=== PATIENT | male | born 1995 | race Caucasian/White ===

== ENCOUNTER 2016-05-22 12:27 | Emergency (ER) | payer OTHER ==
[2016-05-22] MEDS ORDERED: NS 0.9% 1000 ML* 1,000 ML IV ONE ×2 (13:23→14:17)
[2016-05-22] MEDS ORDERED: Ondansetron ODT TAB* 4 MG PO ONE (13:23)
[2016-05-22] MEDS ORDERED: Dexamethasone IV* 4 MG/ML 1 ML (4 MG) IV SLOW PU ONE (13:23)
[2016-05-22] MEDS ORDERED: cefTRIAXone(*) 1 GM in NS 0.9% 50 ML* 50 ML IVPB ONE (13:23)
[2016-05-22] MEDS ORDERED: Ketorolac INJ* 30 MG/ML 1 ML VIAL IM ONE (13:53)
[2016-05-22] MEDS ORDERED: Clindamycin 300 MG IVPREMIX(* 300 MG/50 ML SDV IV SCH (15:00)
[2016-05-22 16:42] VITALS: BP 145/75
--- NOTE | 2016-05-22 19:30 | ED ---
Job Moody Rebecca, scribed for Donald Brunson MD on 05/22/16 at 1325 . Throat Pain/Nasal Congestion - HPI Summary HPI Summary: Pt is a 20 y/o M who presents to ED c/o throat pain and swelling. Sx began gradually 6 days ago and have been worsening and constant since onset. Pain is currently severe, ranked 9/10. Sx aggravated and alleviated by nothing, unchanged by Z-pack Abx. Denies any other sx. No allergies to penicillin. - History of Current Complaint Chief Complaint: EDThroatPain Time Seen by Provider: 05/22/16 13:19 Hx Obtained From: Patient Onset/Duration: Gradual Onset, Lasting Days - 6 days, Still Present Severity: Severe Associated Signs And Symptoms: Positive: Negative Cough: None - Allergies/Home Medications Allergies/Adverse Reactions: Allergies Allergy/AdvReac Type Severity Reaction Status Date / Time No Known Allergies Allergy Verified 05/22/16 12:32 PMH/Surg Hx/FS Hx/Imm Hx Previously Healthy: Yes Endocrine/Hematology History: Denies: Hx Diabetes Cardiovascular History: Denies: Hx Hypertension Infectious Disease History: No Infectious Disease History: Denies: Traveled Outside the [place] in Last 30 Days - Family History Known Family History: Negative: Cardiac Disease, Hypertension, Diabetes - Social History Alcohol Use: Occasionally Substance Use Type: Reports: None Hx Tobacco Use: No Smoking Status (MU): Never Smoked Tobacco Review of Systems Constitutional: Negative Eyes: Negative Positive: Sore Throat, Other - Throat swelling Cardiovascular: Negative Respiratory: Negative Gastrointestinal: Negative Genitourinary: Negative Musculoskeletal: Negative Skin: Negative Neurological: Negative Psychological: Normal All Other Systems Reviewed And Are Negative: Yes Physical Exam - Summary Physical Exam Summary: Vital signs: Reviewed Gen.: Patient is a well-developed and nourished male in no acute distress. Patient is lying comfortably on the stretcher. Head: Normacephalic and atraumatic Eyes: PERRLA, EOMI x2. Ears: Right and Left ear canal and TM WNL Nose and mouth: Positive retropharyngeal abscess Neck: Supple, no lymphadenopathy, no JVD Lungs: CTA B/L CVS: S1 & S2 present. No murmurs appreciated. ABDOMEN: Soft, non-tender. No signs of distention. No rebound no guarding, and no masses palpated. Bowel sounds are normal. EXTREMITIES: FROM in all major joints, no edema, no cyanosis or clubbing. NEURO: Alert and oriented x 3. No acute neurological deficits. Speech is normal and follows commands. SKIN: Dry and warm Triage Information Reviewed: Yes Vital Signs On Initial Exam: Initial Vitals Temp Pulse Resp BP Pulse Ox 98.6 F 95 16 158/80 100 05/22/16 12:30 05/22/16 12:30 05/22/16 12:30 05/22/16 12:30 05/22/16 12:30 Vital Signs Reviewed: Yes Diagnostics - Vital Signs Vital Signs Temp Pulse Resp BP Pulse Ox 05/22/16 12:30 98.6 F 95 16 158/80 100 - Laboratory Lab Results: Lab Results 05/22/16 Range/Units 15:35 Group A Strep Rapid Negative (Negative) Lab Statement: Any lab studies that have been ordered have been reviewed, and results considered in the medical decision making process. Re-Evaluation - Re-Evaluation First Eval Re-Evaluation Time: 15:05 Change: Improved Comment: Pt is feeling significantly better. EENT Course/Dx - Course Assessment/Plan: Pt is a 20 y/o M who presents to ED c/o throat pain and swelling. Sx began gradually 6 days ago and have been worsening and constant since onset. Pain is currently severe, ranked 9/10. Sx aggravated and alleviated by nothing, unchanged by Z-pack Abx. Denies any other sx. No allergies to penicillin. In the ED course he was given 2 liters of IV fluid, decadron, clindamycin and Toradol for the pain. Dr. Gupta (ENT) came and I &D the abscess. NO complication. After the procedure and medications he is feeling much improved. He will be discharged home with Clindamycin and Naproxen for pain. He has no other complaints. I discussed all the findings and test results with the patient. Patient was instructed to return to the emergency room immediately if any of the symptoms return or worsens. If he develops any difficulty swallowing, fever, increase in pain. Plan of care was discussed with the patient and understands and agrees. All questions were answered at patient satisfaction. There were no further complaints or concerns. P/E: Lungs: CTA B/L. Good air exchange. No wheezing or crackles heard. CVS: S1 and S2 present. No murmurs appreciated. Patient is alert and oriented x 3. Patient is hemodynamically stable. Patient will be discharged home with follow up PMD in the next 2-3 days - Differential Diagnoses Differential Diagnoses: Cellulitis, Epiglottitis, Foreign Body, URI/Bronchitis - Diagnoses Provider Diagnoses: Retropharyngeal abscess - Provider Notifications Discussed Care of Patient with: Dr. Gupta, ENT, who will evaluate pt in the ED. Time Discussed With Above Provider: 13:52 Discharge - Discharge Plan Condition: Stable Disposition: HOME Prescriptions: Clindamycin CAP* [Cleocin 150 MG CAP*] 150 mg PO QID #40 cap Naproxen TAB* [Naprosyn TAB*] 375 mg PO BID PRN #20 tab PRN Reason: Pain Patient Education Materials: Abscess (ED) Referrals: IRIS Martinez [Primary Care Provider] - 3 Days (Follow up with your primary health care provider in the next 3 days. ) The documentation as recorded by the Job boone Rebecca accurately reflects the service I personally performed and the decisions made by Boy rahman Walter, MD.
--- NOTE | 2016-05-22 20:31 | CONS ---
CONSULTATION NOTE: DATE OF CONSULTATION: 05/22/16 - EMERGENCY DEPT REQUESTING CONSULTATION IN THE EMERGENCY ROOM AND CONSULTING DOCTOR: Simón Gupta MD The patient is a [employer] student who presented with several-day history of increasing sore throat. He was treated with azithromycin by the health service , but is getting worse and he has been found to have left peritonsillar abscess and I was asked to consult. MEDICATIONS: Azithromycin. DRUG ALLERGIES: No known drug allergies. Denies any other medical problems. On physical examination, he has a bulge in left peritonsillar region. With the help of the emergency room physician, the left peritonsillar region was sprayed with some 4% lidocaine, injected with 1% lidocaine with epinephrine. The injection needle was used as an aspirator to find and localize the pus. An 11 blade was used to make an incision in the peritonsillar region and a Sarahi was inserted into the abscess and the infection was drained. The patient tolerated the procedure well. No complications. The plan is to get him hydrated, give him his first dose of clindamycin IV and send him home on some clindamycin. [id number]/[facility] #: [id number] MTDMaria Del Rosario
== END 2016-05-22 16:39 | disposition home or self-care (01) ==
LOC: ED 12:27
DX: J39.0 Retropharyngeal and parapharyngeal abscess (principal); J02.9 Acute pharyngitis, unspecified
CPT/HCPCS: 87651; 96374; 96375; 99283; J1100; J1885

== ENCOUNTER 2016-07-02 13:04 | Emergency (ER) | payer OTHER ==
[2016-07-02] MEDS ORDERED: Ketorolac INJ* 30 MG/ML 1 ML VIAL IV ONE (13:49)
[2016-07-02] MEDS ORDERED: NS 0.9% 1000 ML* 1,000 ML IV ONE (13:49)
--- NOTE | 2016-07-02 13:51 | ED ---
Throat Pain/Nasal Congestion - HPI Summary HPI Summary: Patient was seen in this ED on 05/22/[address] Gupta and Dr. Brunson for a left peritonsillar abscess with I&D and antibiotics. He felt that the situation improved but since yesterday he has noticed increased swelling in the left throat again, with painful swallowing and facial swelling as well. No fever, chills or drainage. He denies difficulty breathing. - History of Current Complaint Chief Complaint: EDThroatPain Time Seen by Provider: 07/02/16 13:26 Hx Obtained From: Patient Onset/Duration: Gradual Onset Severity: Moderate Associated Signs And Symptoms: Positive: Dysphagia Cough: None Related History: Prior ENT Surgery - 05/22/26 I&D - Epiglottits Risk Factors Epiglottis Risk Factors: Negative - Allergies/Home Medications Allergies/Adverse Reactions: Allergies Allergy/AdvReac Type Severity Reaction Status Date / Time No Known Allergies Allergy Verified 07/02/16 13:07 PMH/Surg Hx/FS Hx/Imm Hx Endocrine/Hematology History: Denies: Hx Diabetes Cardiovascular History: Denies: Hx Hypertension EENT History: Reports: Other - hx of left peritonsillar abscess Infectious Disease History: No Infectious Disease History: Denies: Traveled Outside the [place] in Last 30 Days - Family History Known Family History: Positive: None Negative: Cardiac Disease, Hypertension, Diabetes - Social History Occupation: Student Lives: Alone Alcohol Use: Occasionally Substance Use Type: Reports: None Hx Tobacco Use: No Smoking Status (MU): Never Smoked Tobacco Review of Systems Negative: Fever Positive: Sore Throat. Negative: Dental Pain, Ear Ache Negative: Shortness Of Breath Negative: Rash Negative: Headache All Other Systems Reviewed And Are Negative: Yes Physical Exam Triage Information Reviewed: Yes Vital Signs On Initial Exam: Initial Vitals Temp Pulse Resp BP Pulse Ox 98.0 F 117 20 137/74 99 07/02/16 13:07 07/02/16 13:07 07/02/16 13:07 07/02/16 13:07 07/02/16 13:07 Vital Signs Reviewed: Yes Appearance: Positive: Well-Appearing, No Pain Distress, Well-Nourished Skin: Positive: Warm, Skin Color Reflects Adequate Perfusion, Dry, Soft Head/Face: Positive: Normal Head/Face Inspection Eyes: Positive: EOMI, NIA, Conjunctiva Clear ENT: Positive: Hearing grossly normal, TMs normal, Tonsillar swelling - left. Negative: Trismus, Muffled/hoarse voice Neck: Positive: Supple, Tenderness @, Enlarged Nodes @ - left submandibular Respiratory/Lung Sounds: Positive: Clear to Auscultation, Breath Sounds Present Cardiovascular: Positive: Tachycardia Musculoskeletal: Negative: Edema Left, Edema Right Neurological: Positive: Sensory/Motor Intact, Alert, Oriented to Person Place, Time, NV Bundle Intact Distally Psychiatric: Positive: Affect/Mood Appropriate AVPU Assessment: Alert Procedures - Incision and Drainage Site: Left tonsillar abscess Anesthesia: Topical, Local - 2% lidocaine Instrument(s): Scalpel - scant pus-like drainage, Needle Packing: Other - open to drain Diagnostics - Vital Signs Vital Signs Temp Pulse Resp BP Pulse Ox 07/02/16 13:07 98.0 F 117 20 137/74 99 - Laboratory Result Diagrams: 07/02/16 14:20 Lab Statement: Any lab studies that have been ordered have been reviewed, and results considered in the medical decision making process. - CT No standard instances CT Interpretation: Positive (See Comments) CT Interpretation Completed By: Radiologist - 2.8x2.2x3.0 cm abscess left tonsill EENT Course/Dx - Differential Diagnoses Differential Diagnoses: Dental Abscess, Epiglottitis, Fractured Tooth, Laryngitis, Mastoiditis, Pharyngitis, Tonsilitis - Diagnoses Provider Diagnoses: Peritonsillar abscess Discharge - Discharge Plan Condition: Stable Disposition: HOME Prescriptions: Amoxicillin/Clavulanate TAB* [Augmentin TAB 875*] 875 mg PO BID #27 tab Ibuprofen TAB* [Motrin TAB* 600 MG] 600 mg PO Q8H PRN #60 tab PRN Reason: Pain Patient Education Materials: Peritonsillar Abscess (ED) Referrals: Ortiz Gupta MD [Medical Doctor] - Additional Instructions: Please take the medication provided until it is completely gone. Call Dr. Gupta's office Monday for an appointment in 1-2 days for evaluation. Use ibuprofen 600mg three times daily for the next 3-5 days to decrease swelling and pain. Rinse your mouth after meals. Elevate your head a several pillows for the next 2-3 nights to decrease swelling as well. Return to the emergency department if symptoms worsen, like a fever or difficulty breathing.
[2016-07-02 14:49] LABS: Albumin 4.4 g/dL (3.2-5.2); BUN/Creatinine Ratio 12.6 (8-20); C Reactive Protein 45.43 mg/L (< 5.00); Calcium 9.7 mg/dL (8.6-10.3); EGFR African American 143.9 (>60); EGFR Non-African American 111.9 (>60); Potassium 3.8 mmol/L (3.5-5.0); Total Bilirubin 1.2 mg/dL (0.2-1.0); Total Protein 7.4 g/dL (6.4-8.9)
[2016-07-02 14:53] LABS: Mono Internal Control QC Line Present
[2016-07-02] MEDS ORDERED: Iohexol 300* (CONTRAST) 10 ML SDV IV ONE (14:56)
--- NOTE | 2016-07-02 15:41 | RAD ---
Indication: Left facial swelling, recurrent tonsillar abscess. Contrast: Administered 50.0 ml of OMNIPAQUE 300 mgi/ml. CT of the soft tissues of the neck was performed after IV contrast administration. Coronal and sagittal reconstructed images were obtained. No prior studies available for comparison. The nasopharynx is unremarkable. There is a left peritonsillar mass measuring approximately 2.8 x 2.2 x 3.0 cm with areas of low density within it. This is consistent with a left peritonsillar abscess. There is crowding of the uvula. There is some mild narrowing of the oropharynx. The epiglottis is otherwise unremarkable. The submandibular gland is unremarkable. Left cervical adenopathy is present measuring up to 19 mm on the left and 9 mm on the right. The parotid glands and submandibular glands are otherwise unremarkable. The mandible is otherwise unremarkable. The visualized cervical spine is unremarkable. The paranasal sinuses demonstrates mucous retention cyst in the left maxillary sinus. The trachea and epiglottis as well as the thyroid is otherwise unremarkable. The lung apices are unremarkable. The origins of the great vessels are unremarkable. No significant supraclavicular adenopathy is noted. IMPRESSION: Left peritonsillar mass measuring 2.8 x 2.2 x 3.0 cm. Areas of low density is noted. There is crowding of the oropharynx. This is consistent with a left-sided peritonsillar abscess. Left-sided level 2 cervical adenopathy is noted measuring up to 2 cm. Scattered other lymph nodes are noted. The parotid glands are otherwise unremarkable. Mucous retention cyst is noted in the left maxillary sinus.:
[2016-07-02] MEDS ORDERED: Amoxicillin/Clavulanate TAB* 875 MG PO ONE (16:52)
[2016-07-02 17:03] VITALS: BP 141/65
== END 2016-07-02 17:12 | disposition home or self-care (01) ==
LOC: ED 13:04
DX: J36 Peritonsillar abscess (principal); J02.9 Acute pharyngitis, unspecified
CPT/HCPCS: 36415; 70491; 80053; 86140; 86308; 99283; A9270-GY; J1885; Q9967